=== PATIENT | male | born 1945 | race Caucasian/White ===

== ENCOUNTER 2019-06-01 09:12 | Inpatient (IN) ==
[2019-06-01] MEDS ORDERED: Morphine Sulfate Oral CONC 10 MG/0.5 ML ORAL.SYG PO PRN (12:57)
[2019-06-01] MEDS ORDERED: *HR* LORazepam 1 MG TABLET PO PRN (12:57)
[2019-06-01] MEDS ORDERED: Acetaminophen 325 MG TABLET PO PRN (13:01)
[2019-06-01] MEDS: *HR* Digoxin 0.125 MG TABLET PO SCH (20:14)
[2019-06-02] MEDS: *HR* Digoxin 0.125 MG TABLET PO SCH ×2 (08:49→21:46)
[2019-06-02] MEDS: Bumetanide 1 MG TABLET PO SCH (08:49)
[2019-06-02] MEDS: Isosorbide MONOnitrate (24 HR) 30 MG TAB.ER.24H PO SCH (08:50)
[2019-06-03] MEDS: Bumetanide 1 MG TABLET PO SCH (08:47)
[2019-06-03] MEDS: Isosorbide MONOnitrate (24 HR) 30 MG TAB.ER.24H PO SCH (08:47)
[2019-06-03] MEDS: *HR* Digoxin 0.125 MG TABLET PO SCH ×2 (08:47→22:58)
[2019-06-04] MEDS: Bumetanide 1 MG TABLET PO SCH (09:03)
[2019-06-04] MEDS: *HR* Digoxin 0.125 MG TABLET PO SCH ×2 (09:03→21:16)
[2019-06-04] MEDS: Isosorbide MONOnitrate (24 HR) 30 MG TAB.ER.24H PO SCH (09:03)
[2019-06-05] MEDS: Bumetanide 1 MG TABLET PO SCH (09:13)
[2019-06-05] MEDS: Isosorbide MONOnitrate (24 HR) 30 MG TAB.ER.24H PO SCH (09:13)
[2019-06-05] MEDS: *HR* Digoxin 0.125 MG TABLET PO SCH ×2 (09:13→21:03)
[2019-06-06 08:33] VITALS: BP 116/78
[2019-06-06] MEDS: Bumetanide 1 MG TABLET PO SCH (09:39)
[2019-06-06] MEDS: Isosorbide MONOnitrate (24 HR) 30 MG TAB.ER.24H PO SCH (09:39)
[2019-06-06] MEDS: *HR* Digoxin 0.125 MG TABLET PO SCH (09:39)
== END 2019-06-06 15:10 | disposition hospice, home (50) | DRG 293 ==
LOC: INPGRE 13:57
PROVIDERS: ADMIT Family Medicine; ATTEND Family Medicine